=== PATIENT | female | born 1995 | race Caucasian/White ===

== ENCOUNTER → 2018-05-25 14:13 | Outpatient (CLI) | payer OTHER, SELFPAY ==
--- NOTE | 2018-05-25 14:15 | DI.US.S_ITS ---
PROCEDURE: US THYROID INDICATIONS: THYROMEGALY TECHNIQUE: Real-time scanning was performed of the thyroid gland, with image documentation. COMPARISON: None. FINDINGS: Right: The right thyroid measures 2.1 x 2.1 x 5.6 cm and shows diffuse heterogeneity without focal nodule. Left: The left thyroid lobe measures 1.4 x 2.0 x 5.3 cm also with diffuse heterogeneity and no focal nodule. Isthmus: 6.0 mm in thickness IMPRESSION: Related seen bilaterally, homogeneous, with only a mild degree of prominence of the overall dimensions of the thyroid lobes bilaterally. This likely reflects a manifestation of prior or ongoing thyroiditis. Dictated by: Raffaele Gonzáles M.D. on 05/25/2018 at 15:51 Approved by: Raffaele Gonzáles M.D. on 05/25/2018 at 15:53
== END ==
PROVIDERS: PCP Family Medicine; Visit Provider Family Medicine
DX: E01.0 Iodine-deficiency related diffuse (endemic) goiter (principal)
CPT/HCPCS: 76536

== ENCOUNTER → 2019-03-02 15:45 | Outpatient (CLI) | payer OTHER, SELFPAY ==
--- NOTE | 2019-03-02 15:47 | DI.RAD.S_ITS ---
PROCEDURE: XR SHOULDER LT MIN 2V INDICATIONS: left shoulder pain, possible AC subluxation TECHNIQUE: 3 views of the shoulder were acquired. COMPARISON: None. FINDINGS: Bones: No fractures or dislocations. The coracoclavicular and acromioclavicular intervals are maintained. No suspicious bony lesions. Visualized ribs appear intact. Soft tissues: No suspicious soft tissue calcifications. IMPRESSION: Left shoulder without acute osseous abnormalities or dislocation. Normal acromioclavicular and coracoclavicular intervals. If there is persistent clinical concern for acromioclavicular separation, consider dedicated imaging of the acromioclavicular joints with and without weights. Dictated by: Armando Garcia M.D. on 03/02/2019 at 18:19 Approved by: Armando Garcia M.D. on 03/02/2019 at 18:21
== END ==
PROVIDERS: PCP Family Medicine; Visit Provider Family Medicine
DX: M25.512 Pain in left shoulder (principal)
CPT/HCPCS: 73030

== ENCOUNTER → 2020-10-30 15:38 | Outpatient (CLI) | payer OTHER, SELFPAY ==
[2020-10-30 17:13] LABS: COVID19 -Nasal RAPID Negative (Negative)
== END ==
PROVIDERS: PCP Family Medicine; Visit Provider Physician Assistant
DX: Z20.828 Contact with and (suspected) exposure to other viral communicable diseases (principal)
CPT/HCPCS: 87635

== ENCOUNTER → 2021-01-29 09:27 | Outpatient (CLI) | payer OTHER, SELFPAY ==
[2021-01-29 11:33] LABS: COVID19 -Nasal RAPID Negative (Negative)
== END ==
PROVIDERS: PCP Family Medicine; Visit Provider Student in an Organized Health Care Education/Training Program
DX: Z20.822 Contact with and (suspected) exposure to COVID-19 (principal)
CPT/HCPCS: 87635

== ENCOUNTER 2022-08-29 08:43 | Day surgery (SDC) | payer OTHER, SELFPAY ==
[2022-08-29 09:33] LABS: COVID19 -Nasal RAPID Negative (Negative)
[2022-08-29 09:36] VITALS: BP 140/93; PULSE 100; RESP 20; TEMP 36.8; O2SAT 98; BMI 34.1
[2022-08-29] MEDS: LACTATED RINGERS 1,000 ML 42 ML IV (09:40)
--- NOTE | 2022-08-29 09:59 | PM.HP.1 ---
History of Present Illness History of Present Illness Date Patient Seen: 08/29/22 Time Patient Seen: 10:00 Chief complaint: D&C Narrative: Patient is a 27-year-old 1 para 0 with a missed at 7 weeks 5 days gestation. Patient presented for a new OB visit on August 28, 2022. On ultrasound baby was measuring 7 weeks 5 days, and patient should have been 9 weeks 2 days. No heart motion was visualized. Patient History Medical History (Updated 07/31/22 @ 21:39 by Toña Sharma) Acne (~2009) Ankle pain Anxiety Asthma Cardiac arrhythmia (~03/2016) Chronic back pain Depression (~2017) Headache (~2008) Heavy menstrual period (~2008) Major depressive disorder, recurrent, mild Migraines (~2008) Painful menstrual periods (~2015) Restless leg syndrome (~2020) Scoliosis (~2010) Shoulder pain Surgical History Anesthesia History of third molar tooth extraction (~06/2015) Family & Social History Family History (Updated 07/31/22 @ 21:42 by Toña Sharma) Grandfather Age: 84 Heart disease Essential hypertension High cholesterol Transient cerebral ischemia, unspecified type TGA (transient global amnesia) S/P CABG x 5 TIA (transient ischemic attack) Anxiety Grandmother Age: 83 Diabetes mellitus Heart disease Essential hypertension High cholesterol ST elevation myocardial infarction (STEMI), unspecified artery Mother Age: 59 Essential hypertension High cholesterol Meniere's disease, left Grandfather Diabetes mellitus Heart disease Essential hypertension High cholesterol Hx of CABG Transient cerebral ischemia, unspecified type BPH (benign prostatic hyperplasia) Colitis Gout Prostate cancer Grandmother Age: 84 Essential hypertension Migraine with aura High cholesterol Sister History of PCOS Immune deficiency disorder Social History: household members spouse lives independently Yes Tobacco & Substance use: Smoking Status Never smoker alcohol intake former Substance Use Type does not use Meds Home Medications and Allergies Home Medications Medication Instructions Recorded Confirmed Type albuterol sulfate 90 mcg/actuation 2 puff inhalation Q4HP PRN 05/29/19 08/28/22 Rx aerosol inhaler (Proventil HFA) shortness of breath or wheezing ##17 fluoxetine 20 mg tablet See Rx Instructions .Route 05/14/22 08/28/22 Rx .COMPLEX #90 tabs prenat.vits,sienna,[id number] 1 tab PO DAILY 07/30/22 08/28/22 History Allergies Allergy/AdvReac Type Severity Reaction Status Date / Time azithromycin [AZITHROMYCIN] Allergy Mild SHE GOT Verified 08/29/22 09:01 SICKER cefprozil [From CEFZIL] Allergy Mild RASH Verified 08/29/22 09:01 Exam Vital Signs (past 8 hours): - 08/29/22 09:36 Temperature 98.2 F Pulse Rate 100 H Respiratory Rate 20 Blood Pressure 140/93 H Pulse Oximetry 98 Oxygen Delivery Method Room Air Oxygen Delivery Method Room Air Narrative Exam Narrative: HEENT: No thyromegaly, no anterior cervical or supraclavicular lymphadenopathy. Lungs:Clear to auscultation bilaterally, no wheezes. Cardiovascular: Regular rate and rhythm, no murmurs, rubs, or gallops. Abdomen: No scars. No hepatosplenomegaly. No masses palpable. External genitalia: Normal Vagina: Normal Cervix: Normal Bimanual exam: 8 Week size uterus. Mobile. No adnexal masses or tenderness. Extremities: No edema Objective Labs Labs: Laboratory Results - last 24 hr 08/29/22 09:00 SARS-CoV-2 (PCR) Negative Assessment & Plan Assessment & Plan narrative: Assessment: 27-year-old 1 para 0 with a missed at 7 weeks gestation Plan: Suction D&C The risks, benefits, and alternatives to the procedure were explained to the patient. The risks including bleeding, infection, and uterine perforation. She understands these risks and agrees to proceed. A full par Q was held and consent form was signed. Consent form signed for cell free DNA on tissue COVID-19 COVID-19 status: Negative Result date/Date tested (Pos, Neg/Pending): 08/29/22 Time Spent With Patient Time with patient: less than 30 minutes Critical Care time: I spent a total of [] minutes of critical care time on this patient's care today; this time is exclusive of procedural time.
--- NOTE | 2022-08-29 10:13 | SUR.OPER ---
Lithotomy on padded OR bed, head on pillow, arms secured on padded arm boards at <90 degrees abduction. Legs secured in padded yellow fins stirrups.
--- NOTE | 2022-08-29 10:16 | PM.PREOP ---
Pre-operative Note COVID-19 COVID-19 status: Negative Result date/Date tested (Pos, Neg/Pending): 08/29/22 Criteria for continued procedure: Non-surgical alternatives not available or appropriate per current SOC Interval Note History & Physical reviewed/Exam performed by Physician: Yes Changes to H&P: No H&P completed within 30 days and has changed as indicated here:: 08/29/22
[2022-08-29 11:10] VITALS: BP 125/82; PULSE 82; RESP 13; TEMP 36.2; O2SAT 96
[2022-08-29 11:15] VITALS: BP 123/85; PULSE 78; RESP 21; O2SAT 98
[2022-08-29] MEDS: OXYCODONE/ACETAMINOPHEN 5/325 TABLET 1 TAB PO ×2 (11:18→11:26)
[2022-08-29] MEDS: ONDANSETRON 4 MG/2 ML INJ IV (11:19)
[2022-08-29 11:20] VITALS: BP 122/82; PULSE 84; RESP 16; O2SAT 99
[2022-08-29 11:29] VITALS: BP 121/76; PULSE 74; RESP 12; O2SAT 98
--- NOTE | 2022-08-29 14:43 | PM.GYNOP.1 ---
Operative Date/Time/Diagnoses Date of procedure: 08/29/22 Time of procedure: 11:15 Pre-op diagnosis: Missed at 7 weeks gestation Post-op diagnosis: same Procedure & Clinicians Procedure: Procedures Operation Date: 08/29/22 11:00 Actual Procedure Side Surgeon p Dilation and Curettage-SUCTION Julita Boggs MD Indications: Missed at 7 weeks gestation Surgeon: Julita Boggs Anesthesia Type: General (LMA) Operative Notes Findings: 8 week size anteverted uterus Large amount of products conception Closure Type: not applicable Specimen(s): products of conception Estimated blood loss (mL): 100 Blood products transfused: none Procedure in detail: After informed consent was obtained, the patient was taken to the operating room where she was placed in the dorsal supine position. After adequate LMA general anesthesia was achieved, she was placed in the dorsal lithotomy position, and prepped and draped in the usual sterile fashion. A time-out was performed. A bivalve speculum was placed into the vagina and the anterior lip of the cervix was grasped with a single-tooth tenaculum. The cervical os was sequentially dilated to the # 8 Hegar dilator. The # 7 plastic curved curette passed easily into the endometrial cavity. Several passes with suction revealed fluid and tissue. Several more passes revealed blood only. The curette was removed from the uterus. Sharp curettage was performed yielding minimal amount of tissue. Several more passes with suction revealed blood only. The instruments were removed from the uterus. The single-tooth tenaculum was removed from the anterior lip of the cervix. The bivalve speculum was removed from the vagina. Sponge, lap, and instrument counts were correct x2. The patient tolerated the procedure well, and was taken to PACU in stable condition. Complications: none Post-operative Condition: stable Plan for aftercare: Home after recovery
== END 2022-08-29 11:30 | disposition home or self-care (01) ==
PROVIDERS: PCP Family Medicine; Referring Provider Obstetrics & Gynecology; Visit Provider Obstetrics & Gynecology
PROC: (CPT 58120; principal; 2022-08-29 11:00)
DX: O02.1 Missed abortion (principal); Z3A.01 Less than 8 weeks gestation of pregnancy; F41.9 Anxiety disorder, unspecified; F32.A Depression, unspecified
CPT/HCPCS: 59820; 36415; 86850; 86900; 86901; 87635; J1100; J2250; J2405; J2704; J3010

== ENCOUNTER → 2022-12-02 16:34 | Outpatient (CLI) | payer OTHER, SELFPAY ==
[2022-12-02 18:09] LABS: HCG Quantitative /Beta subunit 484.1 mIU/mL
== END ==
PROVIDERS: PCP Family Medicine; Referring Provider Obstetrics & Gynecology; Visit Provider Obstetrics & Gynecology
DX: Z34.81 Encounter for supervision of other normal pregnancy, first trimester (principal)
CPT/HCPCS: 36415; 84702

== ENCOUNTER → 2022-12-04 17:17 | Outpatient (CLI) | payer OTHER, SELFPAY ==
[2022-12-04 18:16] LABS: HCG Quantitative /Beta subunit 777.2 mIU/mL
== END ==
PROVIDERS: PCP Family Medicine; Referring Provider Obstetrics & Gynecology; Visit Provider Obstetrics & Gynecology
DX: Z34.81 Encounter for supervision of other normal pregnancy, first trimester (principal)
CPT/HCPCS: 36415; 84702

== ENCOUNTER → 2023-01-11 13:38 | Outpatient (CLI) | payer OTHER, SELFPAY | PROVIDERS: PCP Family Medicine; Visit Provider Obstetrics & Gynecology | DX: Z34.81 Encounter for supervision of other normal pregnancy, first trimester (principal) | CPT/HCPCS: 87086 ==

== ENCOUNTER → 2023-01-11 13:59 | Outpatient (CLI) | payer OTHER, SELFPAY ==
[2023-01-11 15:31] LABS: Add Manual Diff / Slide Review NO; Basophils Absolute Auto 0 /uL (0-100); Basophils Percent Auto 0.1 % (0-2); Eosinophils Absolute Auto 100 /uL (0-450); Eosinophils Percent Auto 0.8 % (2-4); Hematocrit 39.3 % (36-46); Hemoglobin 13.6 g/dL (12.0-16.0); Lymphocytes Absolute Auto 2400 /uL (1100-4500); Lymphocytes Percent Auto 23.6 % (25-40); Mean Corpuscular HGB Conc 34.5 % (30-36); Mean Corpuscular Hemoglobin 29.3 PG (26-34); Mean Corpuscular Volume 84.9 fL (80-100); Monocytes Absolute Auto 600 /uL (0-900); Monocytes Percent Auto 6.1 % (3-14); Neutrophils Absolute Auto 7200 /uL (1500-7000); Neutrophils Percent Auto 69.4 % (50-75); Platelet Count 326 X10^3/uL (150-400); Red Blood Cell Count 4.63 X10^6/uL (4.0-5.2); Red Cell Distribution Width 13.6 % (11.6-14.8); White Blood Cell Count 10.3 X10^3/uL (4.5-11.0)
[2023-01-11 16:35] LABS: Hepatitis B Surface Antigen NEGATIVE s/c (NEGATIVE); Rubella Antibody IgG 99.3 IU/mL (>15)
[2023-01-11 16:48] LABS: HIV 1 & 2 Ab/Ag 4th Gen Combo NEGATIVE (NEGATIVE); Hep C Virus Ab w/Reflex Quant NEGATIVE s/c (NEGATIVE)
[2023-01-13 02:42] LABS: RPR Screen Non Reactive (Non Reactive)
[2023-01-14 12:53] LABS: Varicella IgG Antibody 415
== END ==
PROVIDERS: PCP Family Medicine; Referring Provider Obstetrics & Gynecology; Visit Provider Obstetrics & Gynecology
DX: Z34.81 Encounter for supervision of other normal pregnancy, first trimester (principal)
CPT/HCPCS: 36415; 80055; 86787; 86803; 86850; 86900; 86901; 87086; 87389

== ENCOUNTER → 2023-01-19 16:09 | Outpatient (CLI) | payer OTHER, SELFPAY | PROVIDERS: PCP Family Medicine; Referring Provider Obstetrics & Gynecology; Visit Provider Obstetrics & Gynecology | DX: Z34.81 Encounter for supervision of other normal pregnancy, first trimester (principal); Z3A.11 11 weeks gestation of pregnancy | CPT/HCPCS: 36415 ==

== ENCOUNTER → 2023-02-08 15:39 | Outpatient (CLI) | payer OTHER, SELFPAY ==
[2023-02-08 19:02] LABS: Urine N gonorrhoeae NOT DETECTED
[2023-02-08 19:08] LABS: Urine Chlamydia NOT DETECTED
== END ==
PROVIDERS: PCP Family Medicine; Visit Provider Obstetrics & Gynecology
DX: Z34.82 Encounter for supervision of other normal pregnancy, second trimester (principal); Z3A.14 14 weeks gestation of pregnancy
CPT/HCPCS: 87491; 87591

== ENCOUNTER → 2023-03-09 10:39 | Outpatient (CLI) | payer OTHER, SELFPAY ==
[2023-03-12 22:03] LABS: AFP, Serum 37.5 ng/mL (.); Estriol, Free 2.19 ng/mL (.); Inhibin A, Dimeric 211.38 pg/mL (.); Inhibin A, MoM 1.54 (.); Maternal Ethnicity Caucasian (.); Maternal Weight 185 lbs (.); Number of Fetuses No (.); OSBR Risk 1 IN 10000 (.); Results Report (.); Test Results *Screen Negative* (.); hCG, MoM 1.48 (.); hCG, Serum 37043 mIU/mL (.)
== END ==
PROVIDERS: PCP Family Medicine; Referring Provider Obstetrics & Gynecology; Visit Provider Obstetrics & Gynecology
DX: Z34.82 Encounter for supervision of other normal pregnancy, second trimester (principal); Z3A.18 18 weeks gestation of pregnancy
CPT/HCPCS: 36415; 82105; 82677; 84702; 86336

== ENCOUNTER → 2023-05-03 12:43 | Outpatient (CLI) | payer OTHER, SELFPAY ==
[2023-05-03 15:19] LABS: Hematocrit 33.9 % (36-46); Hemoglobin 11.7 g/dL (12.0-16.0)
[2023-05-03 15:42] LABS: GTT (PREG) 1 Hour PP 50gm Dose 108 mg/dL (76-139)
== END ==
PROVIDERS: PCP Family Medicine; Referring Provider Obstetrics & Gynecology; Visit Provider Obstetrics & Gynecology
DX: Z34.82 Encounter for supervision of other normal pregnancy, second trimester (principal); Z3A.26 26 weeks gestation of pregnancy
CPT/HCPCS: 36415; 82950; 85014; 85018

== ENCOUNTER → 2023-07-19 17:01 | Outpatient (CLI) | payer OTHER, SELFPAY ==
[2023-07-20 14:44] LABS: Strep Grp B PCR NEG for Grp B Strep
== END ==
PROVIDERS: PCP Family Medicine; Visit Provider Obstetrics & Gynecology
DX: Z34.03 Encounter for supervision of normal first pregnancy, third trimester (principal); Z3A.37 37 weeks gestation of pregnancy
CPT/HCPCS: 87653

== ENCOUNTER 2023-08-03 19:46 | Inpatient (IN) | payer OTHER, SELFPAY ==
[2023-08-03 21:40] VITALS: BP 119/82
[2023-08-03 21:51] LABS: Add Manual Diff / Slide Review NO; Basophils Absolute Auto 100 /uL (0-100); Basophils Percent Auto 0.5 % (0-2); Eosinophils Absolute Auto 0 /uL (0-450); Eosinophils Percent Auto 0.3 % (2-4); Hemoglobin 12.8 g/dL (12.0-16.0); Lymphocytes Absolute Auto 2400 /uL (1100-4500); Lymphocytes Percent Auto 19.9 % (25-40); Mean Corpuscular HGB Conc 33.8 % (30-36); Mean Corpuscular Hemoglobin 30.1 PG (26-34); Mean Corpuscular Volume 89.1 fL (80-100); Monocytes Absolute Auto 800 /uL (0-900); Monocytes Percent Auto 6.8 % (3-14); Neutrophils Absolute Auto 8700 /uL (1500-7000); Neutrophils Percent Auto 72.5 % (50-75); Platelet Count 281 X10^3/uL (150-400); Red Blood Cell Count 4.27 X10^6/uL (4.0-5.2); Red Cell Distribution Width 13.9 % (11.6-14.8)
--- NOTE | 2023-08-03 23:04 | P.HPOB_ITS ---
OB HPI Date/Time Date of admission: 08/03/23 Date Patient Seen: 08/03/23 Time Patient Seen: 22:00 History of Present Condition Chief complaint: observation of labor : 2 Para: 0 Estimated Date of Delivery: 08/08/23 Estimated Gestational Age (weeks): 39 Narrative: Venita Valle is a 28 year old female admitted for induction due to impending loss of insurance Indications Indication for induction OB: other (Impending loss of insurance) History of Present care: good care, initiated at week # (10), number of visits (10) and pounds weight gain (2) Dating criteria: LMP confirmed by 1st trimester US Ultrasounds: normal mid trimester US Obstetrical complications: none Medical complications: none Preadmission Labs Blood type: A (+) positive -: Antibody screen: negative, GBS status: negative, HBsAG: negative, HIV: negative and RPR/VDLR: negative -: Chlamydia screen: not detected and Gonorrhea screen: not detected -: Rubella: immune and Varicella: immune HCAB: reactive Quad screen: Normal Cell-free DNA: Insufficient fraction, increased risk for trisomy but still low fraction 1 hr GTT: 108 Evaluation Evaluation Baseline heart rate: 130 Variability: Moderate (11-25) monitor accelerations: Present Monitor Decelerations: Absent Contraction Frequency (minutes): 5 Uterine Contraction Intensity: Mild Category of Tracing: Reactive Status: Category l Dilation (cm): 1 Effacement (%): 75 station: -2 [facility] Medical History (Updated 06/01/23 @ 06:00 by Julita Boggs MD) Acne (~2009) Ankle pain Anxiety Asthma Cardiac arrhythmia (~03/2016) 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, delivered Chronic back pain Depression (~2017) Headache (~2008) Heavy menstrual period (~2008) Major depressive disorder, recurrent, mild Migraines (~2008) Painful menstrual periods (~2015) Restless leg syndrome (~2020) Scoliosis (~2010) Shoulder pain Surgical History Anesthesia History of third molar tooth extraction (~06/2015) Family History Grandfather Age: 85 Heart disease Essential hypertension High cholesterol Transient cerebral ischemia, unspecified type TGA (transient global amnesia) S/P CABG x 5 TIA (transient ischemic attack) Anxiety Grandmother Age: 84 Diabetes mellitus Heart disease Essential hypertension High cholesterol ST elevation myocardial infarction (STEMI), unspecified artery Mother Age: 60 Essential hypertension High cholesterol Meniere's disease, left Grandfather Diabetes mellitus Heart disease Essential hypertension High cholesterol Hx of CABG Transient cerebral ischemia, unspecified type BPH (benign prostatic hyperplasia) Colitis Gout Prostate cancer Grandmother Age: 85 Essential hypertension Migraine with aura High cholesterol Sister History of PCOS Immune deficiency disorder Social History marital status: number of children: 0 household members: spouse lives independently: Yes housing: apartment pets and animals: Yes (kitten, is managing litter box maintenance) education level: college (some college) 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) current occupational exposures/hazards: No special summer needs: No travel history: recent (domestic only) seatbelt use: always water heater temp set < 120 deg: Yes working smoke detector in home: Yes fire extinguisher in home: Yes carbon monox detector in home: Yes firearms in home: Yes do you feel safe at home: Yes Smoking Status: Never smoker second hand exposure: No alcohol intake: former substance use type: does not use during the past year weight has: remained stable well-balanced diet: daily or most days daily servings fruits/ve-4 caffeine: Yes Type(s) of exercise: none Meds Home Medications and Allergies Home Medications Medication Instructions Recorded Confirmed Type prenat.vits,sienna,[id number] 1 tab PO DAILY 07/30/22 07/29/23 History fluoxetine 20 mg tablet 20 mg PO DAILY #90 tabs 12/14/22 07/29/23 Rx ondansetron 4 mg disintegrating 4 mg PO Q6H #30 tabs 01/11/23 07/29/23 Rx tablet albuterol sulfate 90 mcg/actuation 2 puff inhalation Q4HP PRN 03/16/23 07/29/23 Rx aerosol inhaler (Proventil HFA) shortness of breath or wheezing ##17 Allergies Allergy/AdvReac Type Severity Reaction Status Date / Time azithromycin [AZITHROMYCIN] Allergy Mild SHE GOT Verified 07/29/23 13:21 SICKER cefprozil [From CEFZIL] Allergy Mild RASH Verified 07/29/23 13:21 Review of Systems Review of Systems Narrative: No headaches, scotomata, epigastric pain. Good movement. No leakage of fluid. Mild cramping. Small amount of vaginal bleeding. OB Exam Vital signs Blood Pressure: 119/82 Pulse Rate: 105 Temperature: 98.4 F Narrative Exam Narrative: HEENT exam within normal limits. Lungs are clear to auscultation percussion. No thyromegaly. Heart is regular rate and rhythm no S3-S4 murmurs. Abdomen is gravid, fetus is vertex, extremities without edema and nontender. Objective Labs 08/03/23 21:20 Labs: Laboratory Results - last 24 hr 08/03/23 08/03/23 21:20 21:20 WBC 12.0 H RBC 4.27 Hgb 12.8 Hct 38.0 MCV 89.1 MCH 30.1 MCHC 33.8 RDW 13.9 Plt Count 281 Neut % (Auto) 72.5 Lymph % (Auto) 19.9 L [place] % (Auto) 6.8 Eos % (Auto) 0.3 L Baso % (Auto) 0.5 Neut # (Auto) 8700 H Lymph # (Auto) 2400 [place] # (Auto) 800 Eos # (Auto) 0 Baso # (Auto) 100 Blood Type A Positive Antibody Screen Negative Assessment and Plan Assessment and Plan Assessment and Plan narrative: 28-year-old 39 week 2 day gestation admitted for induction for imminent loss of insurance. Patient is betina too much for cervical ripening. Patient declined Mcallister bulb. If patient not in active labor in a.m. will begin Pitocin. Time Spent with Patient Total time spent with greater than 50% in coordination of care (as documented) at patient's floor/unit and/or counseling patient:: less than 15 minutes
[2023-08-03 23:12] VITALS: BP 119/82; PULSE 105; TEMP 36.9
[2023-08-04] MEDS: LACTATED RINGERS 1,000 ML 100 ML IV ×3 (04:49→22:23)
[2023-08-04] MEDS: OXYTOCIN PREMIX 30 UNIT/500 ML PLAST..BAG IV (04:51)
--- NOTE | 2023-08-04 10:49 | PM.OBPNLAB ---
Date/Time Date Patient Seen: 08/04/23 Time Patient Seen: 08:00 Pain Control Pain control: tolerating well Comments: Temperature 36.6?, pulse 75, blood pressure 127/82 Pelvic Exam Amniotic membrane status: Intact Contractions Contractions on admission: regular Monitor mode: External Contraction frequency (min): 5 Contraction pattern: Irregular Contraction intensity: Mild Status status: Category l Heart Rate Baseline: 120 Monitor Accelerations: Present Monitor Decelerations: Absent Monitor Variability: Moderate Comments: Patient had contractions all night so was unable to have cervical ripening. Patient declined Mcallister bulb. Assessment and Plan Plan: begin patient augmentation
--- NOTE | 2023-08-04 10:50 | PM.OBPNLAB ---
Date/Time Date Patient Seen: 08/04/23 Time Patient Seen: 10:51 Pain Control Pain control: tolerating well Pelvic Exam Effacement (%): 75 Amniotic membrane status: Intact Contractions Contractions on admission: regular Monitor mode: External Pitocin rate (mU/min): 9 Contraction frequency (min): 3 Contraction duration (min): 1 Contraction pattern: Regular Contraction intensity: Moderate Status status: Category l Heart Rate Baseline: 130 Monitor Accelerations: Present Monitor Decelerations: Absent Monitor Variability: Moderate Assessment and Plan Assessment: induction ongoing Plan: continuous present management (Continue to increase Pitocin)
--- NOTE | 2023-08-04 14:21 | PM.AN.REGBLK ---
[facility] <Michael Berg MD - Last Filed: 08/04/23 14:24> Pre-procedure Procedure: Continuous Lumbar Epidural for L&D PMH/ROS narrative: , Mild asthma PSH/Anesthesia history narrative: None Exam narrative: WNL Labs: Hct 38.0 % (36-46) 08/03/23 21:20 Plt Count 281 X10^3/uL (150-400) 08/03/23 21:20 Medications: Current Medications Generic Name Dose Route Start Last Admin Trade Name Freq PRN Reason Stop Dose Admin Acetaminophen 650 mg 08/03/23 21:41 Acetaminophen 325 Mg Tablet PO Q4HR PRN Fever/Mild Pain (1-3) Calcium Carbonate 1,000 mg 08/03/23 21:41 Calcium Carbonate 500 Mg Tab PO Q2H PRN Dyspepsia Calcium Carbonate 1,000 mg 08/03/23 21:41 Calcium Carbonate 500 Mg Tab PO Q4HR PRN Dyspepsia Carboprost Tromethamine 250 mcg 08/03/23 21:41 Carboprost 250 Mcg/Ml Ampul IM Q90M PRN Bleeding Diphenhydramine HCl 25 mg 08/04/23 14:18 Diphenhydramine 50 Mg/Ml Vial IV Q10M PRN Pruritis Fentanyl 50 mcg 08/03/23 21:41 Fentanyl 100 Mcg/2 Ml Inj IV Q1H PRN Pain, Moderate (4-6) Lactated Ringer's 1,000 mls @ 100 mls/hr 08/03/23 21:45 08/04/23 12:33 Lactated Ringers IV 100 mls/hr CONT GWENDOLYN Administration Oxytocin/Lactated Ringer's 30 unit in 500 mls @ 2 mls/hr 08/03/23 21:45 08/04/23 04:51 Oxytocin Premix IV 2 milliunit/min TITRATE GWENDOLYN 2 mls/hr Administration Protocol 2 MILLIUNIT/MIN Tranexamic Acid 1,000 mg/ 100 mls @ 200 mls/hr 08/03/23 21:41 Sodium Chloride IV NOW PRN Bleeding Lactated Ringer's 1,000 mls @ 100 mls/hr 08/03/23 21:45 08/04/23 04:49 Lactated Ringers IV 100 mls/hr CONT GWENDOLYN Administration Oxytocin/Lactated Ringer's 30 unit in 500 mls @ 200 mls/hr 08/03/23 21:41 Oxytocin Premix IV CONT PRN Bleeding Protocol Oxytocin/Lactated Ringer's 30 unit in 500 mls @ 2 mls/hr 08/04/23 00:31 Oxytocin Premix IV TITRATE GWENDOLYN Protocol 2 MILLIUNIT/MIN FENT 2MCG/ML BUPIV 0.1% EPI 200 mcg in 100 mls @ 6 mls/hr 08/04/23 14:30 Fentanyl/Bupiv/Ns 2mcg/Ml - 0.1% EPIDURAL CONT GWENDOLYN FENT 2MCG/ML BUPIV 0.1% EPI 200 mcg in 100 mls @ 10 mls/hr 08/04/23 14:30 Fentanyl/Bupiv/Ns 2mcg/Ml - 0.1% EPIDURAL CONT GWENDOLYN Lidocaine HCl 20 ml 08/03/23 21:41 Lidocaine 1% 20 Ml INJ INTRA-OP PRN Post Delivery Methylergonovine Maleate 0.2 mg 08/03/23 21:41 Methylergonovine 0.2 Mg/Ml Vial IM NOW PRN Bleeding Methylergonovine Maleate 0.2 mg 08/03/23 21:41 Methylergonovine 0.2 Mg Tablet PO Q6HR PRN Heavy Bleeding Morphine Sulfate 2 mg 08/03/23 21:41 Morphine 2 Mg/Ml Inj IV Q4HR PRN Pain, Moderate (4-6) Nalbuphine HCl 2.5 mg 08/04/23 14:18 Nalbuphine 20 Mg/Ml Ampul IV Q10M PRN Pruritis Naloxone HCl 0.2 mg 08/03/23 21:41 Naloxone 0.4 Mg/Ml Vial IV Q2MIN PRN Opiate Reversal Ondansetron HCl 4 mg 08/03/23 21:41 Ondansetron 4 Mg/2 Ml Inj IV Q4HR PRN Nausea And Vomiting Oxytocin 10 unit 08/03/23 21:41 Oxytocin 10 Unit/Ml Vial IM NOW PRN Bleeding Zolpidem Tartrate 5 mg 08/03/23 21:41 Zolpidem 5 Mg Tablet PO BEDTIME PRN Sleep Allergies: Allergies Allergy/AdvReac Type Severity Reaction Status Date / Time azithromycin [AZITHROMYCIN] Allergy Mild SHE GOT Verified 07/29/23 13:21 SICKER cefprozil [From CEFZIL] Allergy Mild RASH Verified 07/29/23 13:21 Procedure Insertion date: 08/04/23 Insertion time: 14:00 Prep/Local: betadine x3 and 1% lidocaine Interspace: L4-5 Patient position: sitting Needle: 18 gauge Hustead Loss of resistance with: air LUIZ at (cm): 8 Catheter placed at SKIN (cm): 13 Catheter in SPACE (cm): 5 Insertion: No CSF, No Blood, No Paresthesia with insertion, No Paresthesia with injection and No Test dose reaction Initial Medications TEST DOSE time: 14:05 BOLUS DOSE time: 14:07 BOLUS DOSE (mL): 10 BOLUS DOSE med: 0.25% bupivacaine (And fentanyl 100mcg) Infusion INFUSION: 0.125% bupivacaine and with fentanyl 2 mcg/mL Post-procedure Anesthesia time START: 14:00 <Benji Guzman DO - Last Filed: 08/05/23 09:03> Infusion Subsequent interventions: 22:29 - 5mL 2% chloroprocaine, rate from 10 to 12. 00:10 - 2mL 0.5% bupiv, 50mcg fentanyl, 5mL clinician bolus of infusate Post-procedure Anesthesia time END: 03:19 Post-procedure Anesthesia Assessment: Yes CV function: HR/BP stable, Yes Resp function: RR/sat/airway adequate, Yes Post-op hydration adequate, Yes Pain control adequate, Yes Nausea & vomiting absent, Yes Temperature > 36 C, Yes Mental status appropriate and No Anesthesia complications
--- NOTE | 2023-08-04 16:51 | PM.OBPNLAB ---
Date/Time Date Patient Seen: 08/04/23 Time Patient Seen: 16:52 Pain Control Pain control: epidural Pelvic Exam Dilation (cm): 3 Effacement (%): 100 station: -2 Amniotic membrane status: Intact Comments: Ultrasound baby is looking transverse with spine on the left side of the patient. Contractions Contractions on admission: regular Monitor mode: External Pitocin rate (mU/min): 11 Contraction frequency (min): 4 Contraction duration (min): 1 Contraction pattern: Regular Contraction intensity: Strong/Firm Status status: Category l Heart Rate Baseline: 130 Monitor Accelerations: Present Monitor Decelerations: Absent Monitor Variability: Moderate Assessment and Plan Assessment: induction ongoing Plan: continuous present management
[2023-08-04] MEDS: FENT 2MCG/ML BUPIV 0.1% EPI 200 MCG/100 ML PLAST..BAG 6 MCG EPIDURAL ×2 (21:18→21:20)
--- NOTE | 2023-08-05 01:40 | PM.OBPNLAB ---
Date/Time Date Patient Seen: 08/05/23 Time Patient Seen: 01:40 Pain Control Pain control: epidural Pelvic Exam Dilation (cm): 10 Effacement (%): 100 station: +2 Amniotic membrane status: Ruptured (Thin meconium) Contractions Contractions on admission: regular Monitor mode: External Pitocin rate (mU/min): 0 Contraction frequency (min): 3 Contraction duration (min): 1 Contraction pattern: Regular Contraction intensity: Strong/Firm Status status: Category ll Heart Rate Baseline: 150 Monitor Accelerations: Present Monitor Decelerations: Variable Monitor Variability: Moderate Assessment and Plan Assessment: active labor Comments: Good progress with pushing
--- NOTE | 2023-08-05 03:42 | P.PCNOB_ITS ---
Events: Labor Induction (Elective) Labor & Delivery Delivery date: 08/05/23 Intrapartal Events: Prolonged 2nd Stage > 2.5 hours and Febrile Induction method: per pitocin protocol Delivery monitor: external FHT and external uterine Route of delivery: vacuum extraction Indication for instrumentation: nonreassuring FHR tracing L&D Laceration Description: Perineal - 2nd Degree Delivery repair: chromic (3-0) Estimated blood loss (mL): 800 Anesthesia Type: Epidural Narrative: Patient arrived on Labor and delivery for elective induction. On arrival 08/03 she was betina mildly every 5 minutes. She continued to contract so cer vical ripening was unable to be performed. She was started on Pitocin IV. She received an epidural catheter for pain control. Throughout labor heart tones category 1 to category 2. The patient did have a fever the last hour of pushing. After close to 3 hours of pushing the patient was having minimal progress in labor and repetitive late decelerations with slow return to baseline so decision was made to assist in vaginal delivery. A vacuum was placed on the head and with 1 contraction the head was delivered. The was placed on maternal abdomen. There was a cord around the baby's neck. I was also compound presentation of the baby's hand with the baby's face. Delayed cord clamping by greater than 1 minute was performed. The cord was clamped, cut, and cord bloods obtained. The placenta delivered spontaneously, intact, with 3 vessels. Patient was found to have no cervical or vaginal tears. A second-degree perineal tear was repaired with 3-0 chromic suture in the usual 2 layer fashion. Estimated blood loss 800 cc from the vaginal tear rather than from uterine atony. Both infant and mother doing well. Baby 1: Infant gender: Female Presentation: vertex Position: Right Occiput Anterior Placenta delivery description: Spontaneous Cord Vessel Description: 3 Vessels score (1 min): 9 score (5 min): 9 weight: 6 lb 1 oz Plan for aftercare: Routine care
[2023-08-05 04:06] VITALS: TEMP 38.5
[2023-08-05] MEDS: ACETAMINOPHEN 325 MG TABLET 650 MG PO ×3 (04:06→21:47)
[2023-08-05] MEDS: DERMOPLAST SPRAY 20% 60 ML 1 SPRAY TOP (08:03)
[2023-08-05] MEDS: IBUPROFEN 600 MG TABLET PO ×3 (08:44→21:47)
[2023-08-05] MEDS: PRENATAL VIT,CALC/IRON/FOLIC 1 TABLET 1 TAB PO (08:44)
[2023-08-05] MEDS: DOCUSATE 100 MG CAPSULE PO (08:44)
[2023-08-05] MEDS: FERROUS SULFATE 325 MG TABLET PO (08:44)
[2023-08-05] MEDS: FLUoxetine 20 MG CAPSULE PO (08:59)
--- NOTE | 2023-08-05 11:24 | P.HPNB_ITS ---
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 Anesthesia History of third molar tooth extraction (~06/2015) Family History? Grandfather? Age: 85 Heart disease Essential hypertension High cholesterol Transient cerebral ischemia, unspecified type TGA (transient global amnesia) S/P CABG x 5 TIA (transient ischemic attack) AnxietyGrandmother? Age: 84 Diabetes mellitus Heart disease Essential hypertension High cholesterol ST elevation myocardial infarction (STEMI), unspecified arteryMother? Age: 60 Essential hypertension High cholesterol Meniere's disease, leftGrandfather?? Diabetes mellitus Heart disease Essential hypertension High cholesterol Hx of CABG Transient cerebral ischemia, unspecified type BPH (benign prostatic hyperplasia) Colitis Gout Prostate cancerGrandmother? Age: 85 Essential hypertension Migraine with aura High cholesterolSister History of PCOS Immune deficiency disorder Social History marital status:? number of children:? 0 household members:? spouse lives independently:? Yes housing:? apartment pets and animals:? Yes (kitten, is managing litter box maintenance) education level:? 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 No special summer needs:? No travel history:? recent (domestic only) seatbelt use:? always water heater temp set < 120 deg:? Yes working smoke detector in home:? Yes fire extinguisher in home:? Yes carbon monox detector in home:? Yes firearms in home:? Yes do you feel safe at home:? Yes Smoking Status:? Never smoker second hand exposure:? No alcohol intake:? former substance use type:? does not use during the past year weight has:? remained stable well-balanced diet:? daily or most days daily servings fruits/veg:? 2-4 caffeine:? Yes Type(s) of exercise:? none Meds Home Medications and Allergies Home Medications ?Medication ?Instructions ?Recorded ?Confirmed ?Type prenat.vits,sienna,ram-pqjb-[id number] 1 tab PO DAILY 07/30/22 07/29/23 History fluoxetine 20 mg tablet 20 mg PO DAILY #90 tabs 12/14/22 07/29/23 Rx ondansetron 4 mg disintegrating 4 mg PO Q6H #30 tabs 01/11/23 07/29/23 Rx tablet ? albuterol sulfate 90 mcg/actuation 2 puff inhalation Q4HP PRN 03/16/23 07/29/23 Rx aerosol inhaler (Proventil HFA) shortness of breath or wheezing ? ##17 ? ? ? Allergies Allergy/AdvReac Type Severity Reaction Status Date / Time azithromycin [AZITHROMYCIN] Allergy Mild SHE GOT Verified 07/29/23 13:21 ? ? ? SICKER ? ? cefprozil [From CEFZIL] Allergy Mild RASH Verified 07/29/23 13:21 Review of Systems Review of Systems Narrative: No headaches, scotomata, epigastric pain.? Good movement.? No leakage of fluid.? Mild cramping.? Small amount of vaginal bleeding. OB Exam Vital signs Blood Pressure: 119/82 Pulse Rate: 105 Temperature: 98.4 F Narrative Exam Narrative: HEENT exam within normal limits.? Lungs are clear to auscultation percussion.? No thyromegaly.? Heart is regular rate and rhythm no S3-S4 murmurs.? Abdomen is gravid, fetus is vertex, extremities without edema and nontender. Objective Labs 08/03/23 21:20? Labs: Laboratory Results - last 24 hr ? 08/03/23 08/03/23 ? 21:20 21:20 WBC ? ?12.0 H RBC ? ?4.27 Hgb ? ?12.8 Hct ? ?38.0 MCV ? ?89.1 MCH ? ?30.1 MCHC ? ?33.8 RDW ? ?13.9 Plt Count ? ?281 Neut % (Auto) ? ?72.5 Lymph % (Auto) ? ?19.9 L [place] % (Auto) ? ?6.8 Eos % (Auto) ? ?0.3 L Baso % (Auto) ? ?0.5 Neut # (Auto) ? ?8700 H C Lymph # (Auto) ? ?2400 [place] # (Auto) ? ?800 Eos # (Auto) ? ?0 Baso # (Auto) ? ?100 Blood Type ?A Positive ? Antibody Screen ?Negative ? Assessment and Plan Assessment and Plan Assessment and Plan narrative: 28-year-old 39 week 2 day gestation admitted for induction for imminent loss of insurance.? Patient is betina too much for cervical ripening.? Hiral ent declined Mcallister bulb.? If patient not in active labor in a.m. will begin Pitocin. Exam - Pediatric Vital Signs Vital Signs: Vital Signs BP 119/82 08/03/23 21:40 Objective Labs 08/03/23 21:20 Sarnat Scoring Scale Citation Ashley HB, Smooth L, Carrie C, Isidro LM, Anna C, Garcia K. Sarnat grading scale for encephalopathy after 45 years: an update proposal. Pediatr Neurol. 2020;113:75?9.
--- NOTE | 2023-08-05 12:14 | PM.OBPN.1 ---
Subjective - OB Subjective Patient comments: pain well controlled [place] baby status: doing well feeding status: exclusively breast feeding Narrative: 8 hours post vaginal delivery with repair of second-degree tear. Patient with 800 cc blood loss at the time of surgery. Patient was feeling slightly lightheaded and dizzy with increased pulse but is feeling better at this time. Patient was unable to void and was straight cath x1 then had a Mcallister catheter placed 4 hours later due to swelling. Date Patient Seen: 08/05/23 Time Patient Seen: 12:15 Exam Vital Signs (past 8 hours): Blood pressure 107/69, pulse of 109, temperature 36.0? Narrative Exam Narrative: Abdomen is soft, nontender. Uterus is firm, at U, nontender. Repair is intact. Mild lochia. Extremities without edema and nontender. Objective Labs 08/03/23 21:20 Assessment & Plan Plan day: 0 plan OB: routine care Comments: Will check CBC now rather than waiting till tomorrow. Remove Mcallister tomorrow after swelling has decreased. Time Spent With Patient Time: Total time spent is greater than 50% in coordination of care (as documented) at patient's floor/unit and/or counseling patient: Time with patient: less than 15 minutes
[2023-08-05 14:13] LABS: Add Manual Diff / Slide Review NO; Basophils Absolute Auto 0 /uL (0-100); Basophils Percent Auto 0.2 % (0-2); Eosinophils Absolute Auto 0 /uL (0-450); Eosinophils Percent Auto 0.2 % (2-4); Hematocrit 26.3 % (36-46); Hemoglobin 8.9 g/dL (12.0-16.0); Lymphocytes Absolute Auto 1900 /uL (1100-4500); Lymphocytes Percent Auto 11.1 % (25-40); Mean Corpuscular HGB Conc 33.8 % (30-36); Mean Corpuscular Hemoglobin 29.8 PG (26-34); Mean Corpuscular Volume 87.9 fL (80-100); Monocytes Absolute Auto 1200 /uL (0-900); Neutrophils Absolute Auto 13800 /uL (1500-7000); Neutrophils Percent Auto 81.5 % (50-75); Platelet Count 228 X10^3/uL (150-400); Red Blood Cell Count 2.99 X10^6/uL (4.0-5.2); Red Cell Distribution Width 14.1 % (11.6-14.8); White Blood Cell Count 16.9 X10^3/uL (4.5-11.0)
[2023-08-06] MEDS: OXYCODONE IR 5 MG TABLET PO ×3 (02:33→17:41)
[2023-08-06] MEDS: IBUPROFEN 600 MG TABLET PO ×3 (04:44→19:46)
[2023-08-06] MEDS: ACETAMINOPHEN 325 MG TABLET 650 MG PO ×3 (04:45→19:46)
[2023-08-06 06:15] LABS: Add Manual Diff / Slide Review NO; Basophils Absolute Auto 0 /uL (0-100); Basophils Percent Auto 0.2 % (0-2); Eosinophils Absolute Auto 100 /uL (0-450); Eosinophils Percent Auto 0.5 % (2-4); Hematocrit 21.8 % (36-46); Hemoglobin 7.3 g/dL (12.0-16.0); Lymphocytes Absolute Auto 3000 /uL (1100-4500); Lymphocytes Percent Auto 21.8 % (25-40); Mean Corpuscular HGB Conc 33.4 % (30-36); Mean Corpuscular Hemoglobin 29.6 PG (26-34); Mean Corpuscular Volume 88.5 fL (80-100); Monocytes Absolute Auto 900 /uL (0-900); Monocytes Percent Auto 6.9 % (3-14); Neutrophils Absolute Auto 9700 /uL (1500-7000); Neutrophils Percent Auto 70.6 % (50-75); Platelet Count 188 X10^3/uL (150-400); Red Blood Cell Count 2.46 X10^6/uL (4.0-5.2); Red Cell Distribution Width 14.3 % (11.6-14.8); White Blood Cell Count 13.7 X10^3/uL (4.5-11.0)
[2023-08-06] MEDS: FLUoxetine 20 MG CAPSULE PO (10:07)
[2023-08-06] MEDS: FERROUS SULFATE 325 MG TABLET PO (10:07)
[2023-08-06] MEDS: PRENATAL VIT,CALC/IRON/FOLIC 1 TABLET 1 TAB PO (10:07)
[2023-08-06] MEDS: DOCUSATE 100 MG CAPSULE PO (10:07)
--- NOTE | 2023-08-06 11:25 | P.PNOB_ITS ---
Subjective - OB Subjective Patient comments: no complaints (Tolerable discomfort with ambulation) baby status: doing well (Being monitored for possible cardiac problems) feeding status: exclusively breast feeding Date Patient Seen: 08/06/23 Time Patient Seen: 09:00 Interval history: Patient is day 1 status post vaginal delivery with repair of second-degree tear with acute blood loss anemia. Patient still has her Mcallister catheter in that was replaced due to inability urinate from swelling . Patient denies headaches. Exam Vital Signs (past 8 hours): Blood pressure 115/64, pulse of 81, temperature 98.6? Narrative Exam Narrative: Abdomen is soft, nontender. Uterus is firm, at U, nontender. Repair is intact. Mild lochia. Extremities without edema and nontender. Objective Labs 08/06/23 06:00 Labs: Laboratory Results - last 24 hr 08/05/23 08/06/23 14:08 06:00 WBC 16.9 H 13.7 H RBC 2.99 L 2.46 L Hgb 8.9 L 7.3 L Hct 26.3 L 21.8 L MCV 87.9 88.5 MCH 29.8 29.6 MCHC 33.8 33.4 RDW 14.1 14.3 Plt Count 228 188 Neut % (Auto) 81.5 H 70.6 Lymph % (Auto) 11.1 L 21.8 L [place] % (Auto) 7.0 6.9 Eos % (Auto) 0.2 L 0.5 L Baso % (Auto) 0.2 0.2 Neut # (Auto) 32311 H 9700 H Lymph # (Auto) 1900 3000 [place] # (Auto) 1200 H 900 Eos # (Auto) 0 100 Baso # (Auto) 0 0 Assessment & Plan Assessment and Plan (1) Vaginal delivery: Status: Acute (2) Acute blood loss anemia: Status: Acute Plan day: 1 plan OB: routine care Comments: Remove Mcallister. IV iron therapy. Time Spent With Patient Time: Total time spent is greater than 50% in coordination of care (as documented) at patient's floor/unit and/or counseling patient: Time with patient: less than 15 minutes
[2023-08-06] MEDS: IRON SUCROSE 200 MG in SODIUM CHLORIDE 0.9% 100 ML 220 MG IV (11:38)
[2023-08-06 12:48] LABS: Hematocrit 23.5 % (36-46)
[2023-08-06 12:49] LABS: Hemoglobin 8.2 g/dL (12.0-16.0)
[2023-08-06 13:00] LABS: Carbon Dioxide 24 mmol/L (22-32); Chloride 108 mmol/L (98-107); HEMOLYSIS < 15 (0-50); Potassium 3.7 mmol/L (3.4-5.1); Sodium 136 mmol/L (137-145)
[2023-08-06] MEDS: LANOLIN OINT 7 GM 1 APPLIC TOP (17:40)
--- NOTE | 2023-08-06 17:47 | P.DS_ITS ---
Discharge Providers Provider Date of admission: 08/03/23 19:46 Discharge Date: 08/06/23 Primary care physician: Janet Gillespie MD Consults: 08/03/23 21:41 Consult to Anesthesiology Urgent Comment: Consulting Provider: Anesthesiologist Reason for consultation: Epidural Has provider been notified: No 08/06/23 03:39 Consult to Implementation Project Coordinator Routine Comment: Discharge provider: Jolie Duckworth MD Summary Hospital Course Date Patient Seen: 08/06/23 Time Patient Seen: 17:47 Diagnoses: 39 week gestation with elective induction status post vacuum assisted vaginal delivery with repair of second-degree tear Hospital Course: Patient arrived on Labor and delivery for induction. She was betina too much for ripening but eventually started on Pitocin. She received an epidural catheter for pain control. She had a prolonged 2nd stage with deep variables with slow return to baseline at the end of 2nd stage with a maternal temperature so decision was made for vacuum assisted vaginal delivery. Patient had significant blood loss from her second-degree tear. Patient had a Mcallister catheter replaced for inability to urinate due to swelling. Due to patient's anemia the patient was started on IV iron therapy and she had a transfusion like reaction and so the infusion was stopped. Patient has been trying to breastfeed but unsuccessful so baby is being bottle fed. Patient is passing gas. Patient was able to urinate after her Mcallister catheter was removed. transported and patient discharged to be allowed to go with baby. Peripartum Data Infant Delivery Method: Assisted Delivery (Vacuum assisted) Laceration Description: Perineal - 2nd Degree Procedures: Pitocin induction, epidural catheter, vacuum assisted vaginal delivery, repair of second-degree tear complications: other (Transfusion like reaction to IV iron therapy) 1: Gender: Female Disposition of : NICU (Transfer in progress for heart rate) Discharge Diagnosis (1) Vaginal delivery: Status: Acute Problem Details: Vacuum assisted (2) Acute blood loss anemia: Status: Acute Status at Discharge Cognitive/behavioral status at discharge: oriented Functional status at discharge: independent ambulation Overall status at discharge: patient is progressing back to baseline Time Spent with Patient Time attestation: Total time spent providing and/or coordinating discharge services: Time spent: Less than 30 minutes Objective Labs 08/06/23 12:34 08/06/23 12:34 Labs: Laboratory Results - last 24 hr 08/06/23 08/06/23 08/06/23 06:00 12:34 12:34 WBC 13.7 H RBC 2.46 L Hgb 7.3 L 8.2 L Hct 21.8 L MCV 88.5 MCH 29.6 MCHC 33.4 RDW 14.3 Plt Count 188 Neut % (Auto) 70.6 Lymph % (Auto) 21.8 L [place] % (Auto) 6.9 Eos % (Auto) 0.5 L Baso % (Auto) 0.2 Neut # (Auto) 9700 H Lymph # (Auto) 3000 [place] # (Auto) 900 Eos # (Auto) 100 Baso # (Auto) 0 Sodium 136 L Potassium 3.7 Chloride 108 H Carbon Dioxide 24 08/06/23 12:34 WBC RBC Hgb Hct 23.5 L MCV MCH MCHC RDW Plt Count Neut % (Auto) Lymph % (Auto) [place] % (Auto) Eos % (Auto) Baso % (Auto) Neut # (Auto) Lymph # (Auto) [place] # (Auto) Eos # (Auto) Baso # (Auto) Sodium Potassium Chloride Carbon Dioxide Exam Narrative Exam Narrative: Abdomen is soft, nontender. Uterus is firm, at U, nontender. Mild lochia. Repair intact. Extremities with trace edema and nontender. Discharge Plan Discharge Plan Patient Disposition: Home Discharge orders & Medications Prescriptions: New ferrous sulfate 325 mg (65 mg iron) Tablet 325 mg PO DAILY Qty: 30 0RF Continued fluoxetine 20 mg tablet 20 mg PO DAILY Qty: 90 3RF albuterol sulfate [Proventil HFA] 90 mcg/actuation HFA aerosol inhaler 2 puff inhalation Q4HP PRN (Reason: shortness of breath or wheezing) Qty: 17 4RF oxycodone 5 mg tablet 5 mg PO Q4H PRN (Reason: pain) Qty: 14 0RF prenat.vits,sienna,wpm-sunl-hgvvd Tablet 1 tab PO DAILY Follow up/Referrals: Julita Boggs MD [Physician] - 6 Weeks Janet Gillespie MD [Primary Care Provider] - Diet/Activity/Treatments Diet: Regular Activity: Nothing in vagina for 6 weeks Skin/Wound/Dressing Care Report to your healthcare provider any signs of infection, such as:: chills, fever and increased pain Visit Report/Discharge Packet Stand Alone Forms: Discharge: Care, Patient Portal/API Discharge Data Primary Care Provider: Janet Gillespie Discharges patient from system. Discharge Date/Time: 08/06/23 20:38
[2023-08-06 19:07] VITALS: BP 110/62; PULSE 87; RESP 16; TEMP 37.3
== END 2023-08-06 20:38 | disposition home or self-care (01) | DRG 806 ==
PROVIDERS: Admitting Provider Specialist; PCP Family Medicine; Referring Provider Specialist; Visit Provider Specialist
DX: O76 Abnormality in fetal heart rate and rhythm complicating labor and delivery (principal); D62 Acute posthemorrhagic anemia; Z37.0 Single live birth; O90.81 Anemia of the puerperium; O70.1 Second degree perineal laceration during delivery; Z3A.39 39 weeks gestation of pregnancy; O32.6XX0 Maternal care for compound presentation, not applicable or unspecified
CPT/HCPCS: 36415; 59050; 59400; 59409; 80051; 85014; 85018; 85025; 86850; 86900; 86901; G0379; J1756; J2590

== ENCOUNTER → 2023-09-10 09:52 | Outpatient (CLI) | payer SELFPAY ==
[2023-09-11 15:10] LABS: Candida species Negative (Negative); Gardnerella vaginalis Negative (Negative); Trichomoas vaginalis Negative (Negative)
== END ==
PROVIDERS: PCP Family Medicine; Visit Provider Obstetrics & Gynecology
DX: N89.8 Other specified noninflammatory disorders of vagina (principal)
CPT/HCPCS: 87480; 87510; 87660

== ENCOUNTER → 2024-06-08 12:58 | Outpatient (CLI) | payer BC, SELFPAY ==
[2024-06-08 13:50] LABS: Add Manual Diff / Slide Review NO; Basophils Absolute Auto 0 /uL (0-100); Basophils Percent Auto 0.3 % (0-2); Eosinophils Absolute Auto 100 /uL (0-450); Eosinophils Percent Auto 1.6 % (2-4); Hematocrit 40.3 % (36-46); Hemoglobin 13.6 g/dL (12.0-16.0); Lymphocytes Absolute Auto 3000 /uL (1100-4500); Lymphocytes Percent Auto 35.9 % (25-40); Mean Corpuscular HGB Conc 33.9 % (30-36); Mean Corpuscular Hemoglobin 29.2 PG (26-34); Mean Corpuscular Volume 86.3 fL (80-100); Monocytes Absolute Auto 600 /uL (0-900); Monocytes Percent Auto 7.2 % (3-14); Neutrophils Absolute Auto 4600 /uL (1500-7000); Platelet Count 296 X10^3/uL (150-400); Red Blood Cell Count 4.67 X10^6/uL (4.0-5.2); Red Cell Distribution Width 13.9 % (11.6-14.8); White Blood Cell Count 8.3 X10^3/uL (4.5-11.0)
[2024-06-08 14:11] LABS: Alanine Aminotransferase 19 IU/L (<35); Albumin 4.5 g/dL (3.5-5.0); Albumin Globulin Ratio 1.5 (1.0-2.8); Alkaline Phosphatase 62 U/L (38-126); Aspartate Aminotransferase 23 IU/L (14-36); BUN Creatinine Ratio 16.2 (6-22); Bilirubin Total 0.6 mg/dL (0.2-1.3); Blood Urea Nitrogen 12 mg/dL (7-17); Calcium 9.3 mg/dL (8.4-10.2); Carbon Dioxide 17 mmol/L (22-32); Chloride 110 mmol/L (98-107); Estimated Glomerular Filt Rate > 60 mL/min (>60); Globulin 3.1 g/dL (1.7-4.1); Glucose 109 mg/dL (70-100); HEMOLYSIS < 15 (0-50); Potassium 3.7 mmol/L (3.4-5.1); Sodium 138 mmol/L (137-145); Total Protein 7.6 g/dL (6.3-8.2)
[2024-06-08 14:32] LABS: Free T3, Triiodothyronine Free 3.84 pg/mL (2.77-5.27)
[2024-06-08 14:46] LABS: Thyroid Stimulating Hormone 1.59 uIU/mL (0.47-4.68)
== END ==
PROVIDERS: PCP Family Medicine; Referring Provider Family Medicine; Visit Provider Family Medicine
DX: F32.A Depression, unspecified (principal); R53.83 Other fatigue
CPT/HCPCS: 36415; 80053; 84439; 84443; 84481; 85025

== ENCOUNTER → 2024-10-31 09:42 | Outpatient (CLI) | payer BC, SELFPAY ==
[2024-10-31 11:08] LABS: HCG Quantitative /Beta subunit 357.94 mIU/mL
== END ==
PROVIDERS: PCP Family Medicine; Referring Provider Obstetrics & Gynecology; Visit Provider Obstetrics & Gynecology
DX: Z34.90 Encounter for supervision of normal pregnancy, unspecified, unspecified trimester (principal)
CPT/HCPCS: 36415; 84702

== ENCOUNTER → 2024-11-02 10:32 | Outpatient (CLI) | payer BC, SELFPAY ==
[2024-11-02 13:08] LABS: HCG Quantitative /Beta subunit 783.83 mIU/mL
== END ==
LOC: LAB 10:41
PROVIDERS: PCP Family Medicine; Referring Provider Obstetrics & Gynecology; Visit Provider Obstetrics & Gynecology
DX: Z34.90 Encounter for supervision of normal pregnancy, unspecified, unspecified trimester (principal)
CPT/HCPCS: 36415; 84702

== ENCOUNTER → 2024-12-21 13:57 | Outpatient (CLI) | payer OTHER, SELFPAY ==
[2024-12-21 20:28] LABS: Urine N gonorrhoeae NOT DETECTED
[2024-12-21 21:01] LABS: Urine Chlamydia NOT DETECTED
== END ==
PROVIDERS: PCP Family Medicine; Visit Provider Obstetrics & Gynecology
DX: Z11.3 Encounter for screening for infections with a predominantly sexual mode of transmission (principal); Z3A.11 11 weeks gestation of pregnancy
CPT/HCPCS: 87491; 87591

== ENCOUNTER → 2024-12-21 16:36 | Outpatient (CLI) | payer OTHER, SELFPAY ==
[2024-12-21 17:21] LABS: Add Manual Diff / Slide Review NO; Basophils Absolute Auto 0 /uL (0-100); Basophils Percent Auto 0.2 % (0-2); Eosinophils Absolute Auto 100 /uL (0-450); Eosinophils Percent Auto 0.5 % (2-4); Hematocrit 39.3 % (36-46); Hemoglobin 13.7 g/dL (12.0-16.0); Lymphocytes Absolute Auto 2400 /uL (1100-4500); Lymphocytes Percent Auto 22.1 % (25-40); Mean Corpuscular HGB Conc 34.8 % (30-36); Mean Corpuscular Hemoglobin 31.3 PG (26-34); Mean Corpuscular Volume 89.7 fL (80-100); Monocytes Absolute Auto 600 /uL (0-900); Monocytes Percent Auto 5.2 % (3-14); Neutrophils Absolute Auto 7800 /uL (1500-7000); Platelet Count 269 X10^3/uL (150-400); Red Blood Cell Count 4.37 X10^6/uL (4.0-5.2); White Blood Cell Count 10.8 X10^3/uL (4.5-11.0)
[2024-12-21 18:26] LABS: HIV 1 & 2 Ab/Ag 4th Gen Combo NEGATIVE (NEGATIVE); Hep C Virus Ab w/Reflex Quant NEGATIVE s/c (NEGATIVE); Hepatitis B Surface Antigen NEGATIVE s/c (NEGATIVE); Rubella Antibody IgG 93.3 IU/mL (>15)
== END ==
PROVIDERS: PCP Family Medicine; Referring Provider Specialist; Visit Provider Specialist
DX: Z34.80 Encounter for supervision of other normal pregnancy, unspecified trimester (principal)
CPT/HCPCS: 36415; 80055; 86787; 86803; 86850; 86900; 86901; 87086; 87389

== ENCOUNTER → 2025-02-23 07:43 | Outpatient (CLI) | payer OTHER, SELFPAY ==
--- NOTE | 2025-02-23 07:44 | DI.US.S_ITS ---
PROCEDURE: US OB >= 14 WEEKS FETUS INDICATIONS: 20 week anatomy scan OUTSIDE/PRIOR DATING DATA: Last menstrual period (LMP): 10/04/2025. LMP-based estimated date of delivery (ELIUD): 07/11/2025. First dating scan (date and location): 11/20/2024. Estimated date of delivery (ELIUD) from first dating scan: 07/11/2025. The calculations are made using the working and ultrasound ELIUD of 07/11/2025. TECHNIQUE: Real-time scanning was performed of the fetus, with image documentation and biometric measurements. Endovaginal scanning: Not performed COMPARISON: [facility], US, US OB >= 14 WEEKS FETUS, 01/25/2025, 10:28. FINDINGS: General: A single living intrauterine gestation is present. Presentation: Vertex. Placenta: Placental position is posterior, without previa. Amniotic fluid index: 14.1 cm, normal range is 5-24 cm. Single deepest vertical pocket is 4.2 cm. heart rate: 4.8 beats per minute. Maternal cervical canal: 4.8 cm long. Normal lower limit is 2.5 cm. biometrics: Biparietal diameter: 5.2 cm, 21 weeks 5 days Head circumference: 18.6 cm, 20 weeks 6 days Abdominal circumference: 17.0 cm, 22 weeks 0 days Femur length: 3.3 cm, 20 weeks 3 days Clinically estimated gestational age: 20 weeks 2 days Composite gestational age from present scan: 21 weeks 2 days Estimated weight and percentile: 411 g, 92nd percentile Anatomic survey: Neuro: Ventricles are non-dilated at less than 10 mm. Cisterna magna is normal at 3-11 mm. Cerebellum is normal in size and morphology. Nuchal skin fold: Normal at less than 6 mm between 14-21 weeks gestational age. Face: Nose and lips, facial profile are normal. Spine: No evidence for spina bifida. Heart: 4-chambered heart is present, with normal ventricular outflow tracts. Diaphragm: Diaphragm is intact. Stomach: Left-sided stomach is present. Kidneys: No hydronephrosis. Normal is less than 5 mm in 2nd trimester, less than 7 mm in 3rd trimester. Cord: 3-vessel cord has orthotopic insertion. Bladder: Normal in size. Extremities: All 4 extremities identified. IMPRESSION: 1. Living 2nd trimester intrauterine with no sonographic evidence of complications. Ultrasound age is 7 days greater than clinical age. 2. Normal 2nd trimester anatomy study. We strive to produce accurate, complete, and clear reports of imaging services. To assist us in improving patient care, this report was composed using standard report templates and voice recognition software. Therefore, it may contain abnormal punctuation, insertions and/or omissions. Occasional wrong-word or sound-alike substitutions may occur. Though we review the report and make efforts to correct it, we do recommend that the report be read carefully in proper context to recognize any text inaccuracies. Dictated by: José Miguel Jensen M.D. on 02/23/2025 at 13:02 Approved by: José Miguel Jensen M.D. on 02/23/2025 at 13:06
== END ==
PROVIDERS: PCP Family Medicine; Referring Provider Obstetrics & Gynecology; Visit Provider Obstetrics & Gynecology
DX: Z34.92 Encounter for supervision of normal pregnancy, unspecified, second trimester (principal); Z3A.20 20 weeks gestation of pregnancy
CPT/HCPCS: 76811

== ENCOUNTER → 2025-03-24 09:54 | Outpatient (CLI) | payer OTHER, SELFPAY ==
[2025-03-24 11:06] LABS: Hematocrit 34.4 % (36-46)
[2025-03-24 12:15] LABS: GTT (PREG) 1 Hour PP 50gm Dose 81 mg/dL (76-139)
== END ==
PROVIDERS: PCP Family Medicine; Referring Provider Obstetrics & Gynecology; Visit Provider Obstetrics & Gynecology
DX: Z34.82 Encounter for supervision of other normal pregnancy, second trimester (principal); Z3A.26 26 weeks gestation of pregnancy
CPT/HCPCS: 36415; 82950; 85014; 85018

== ENCOUNTER 2025-05-10 14:42 | Observation (INO) | payer OTHER, SELFPAY ==
[2025-05-10 15:17] LABS: Appearance Urine UA CLEAR; Bilirubin Urine UA NEGATIVE (NEGATIVE); Color Urine UA YELLOW; Glucose Urine UA NEGATIVE (Negative); Ketones Urine UA 3+ (NEGATIVE); Leukocyte Esterase Urine UA NEGATIVE (NEGATIVE); Nitrite Urine UA NEGATIVE (Negative); Occult Blood Urine UA 1+ (Negative); Protein Urine UA TRACE (Negative); Specific Gravity Urine UA >=1.030 (1.000-1.035); Urobilinogen Urine UA 1.0 E.U./dL (0.2)
--- NOTE | 2025-05-10 15:19 | DI.US.S_ITS ---
PROCEDURE: US OB LIMITED INDICATIONS: SPOTTING OUTSIDE/PRIOR DATING DATA: Working ELIUD of 07/11/2025. TECHNIQUE: Real-time scanning was performed of the fetus, with image documentation. COMPARISON: [facility], US, US OB >= 14 WEEKS FETUS, 04/26/2025, 10:00. FINDINGS: A single living intrauterine gestation is present. Presentation: Vertex. Placenta: Placental position is posterior, without previa. Amniotic fluid index: 12.8 cm, normal range is 5-24 cm. Single deepest vertical pocket is 4.4 cm. heart rate: 145 beats per minute. Maternal cervical canal: 3.5 cm long. Normal lower limit is 2.5 cm. Clinically estimated gestational age: 31 weeks 1 day IMPRESSION: Single live intrauterine with gestational age of 31 weeks 1 day. JAY is within normal limits. No evidence of abruption. Dictated by: Sherry Kramer M.D. on 05/10/2025 at 17:13 Approved by: Sherry Kramer M.D. on 05/10/2025 at 17:14
[2025-05-10 15:26] LABS: pH Urine UA 5.5 (4.5-8.0)
[2025-05-10 15:30] LABS: Culture Indicated Urine Cult Not Indicated
== END 2025-05-10 17:42 | disposition home or self-care (01) ==
PROVIDERS: Obstetrics & Gynecology; Admitting Provider Student in an Organized Health Care Education/Training Program; PCP Family Medicine; Referring Provider Student in an Organized Health Care Education/Training Program; Visit Provider Student in an Organized Health Care Education/Training Program
DX: O26.853 Spotting complicating pregnancy, third trimester (principal); Z3A.31 31 weeks gestation of pregnancy
CPT/HCPCS: 59025; 59050; 76815; 76817; 81001; G0378; G0379

== ENCOUNTER 2025-05-19 14:15 | Observation (INO) | payer OTHER, SELFPAY ==
[2025-05-19 15:00] LABS: Appearance Urine UA CLEAR; Bilirubin Urine UA NEGATIVE (NEGATIVE); Color Urine UA YELLOW; Glucose Urine UA NEGATIVE (Negative); Ketones Urine UA NEGATIVE (NEGATIVE); Leukocyte Esterase Urine UA 3+ (NEGATIVE); Nitrite Urine UA NEGATIVE (Negative); Occult Blood Urine UA NEGATIVE (Negative); Protein Urine UA NEGATIVE (Negative); Specific Gravity Urine UA <=1.005 (1.000-1.035); Urobilinogen Urine UA 0.2 E.U./dL (0.2); pH Urine UA 5.5 (4.5-8.0)
[2025-05-19 15:16] LABS: Culture Indicated Urine Specimen Cultured
[2025-05-19] MEDS: NITROFURANTOIN ER 100 MG CAPSULE PO ×2 (15:37→16:48)
--- NOTE | 2025-05-19 16:01 | P.TNLD_ITS ---
Visit Information Visit Information Date of evaluation: 05/19/25 Primary OB Provider: Julita Boggs On-call OB Provider: Pilar Cristina Reason for Evaluation: Yes pre-term labor and Yes rule out labor Comments/Additional reasons for admission: This is a 29 yo at 32w3d here for concern of contractions. She was seen 1 week ago for similar and received nifedipine protocol (3 doses total) and returned home with no futher contractions. At that time she had no signs of UTI or vaginal infection. She returns today with 1 hr of back pain occuring every 5- 7 minutes. Good movement. [facility] Medical History (Updated 05/07/25 @ 07:24 by Julita Boggs MD) Restless leg syndrome (~2020) Vaginal delivery (~08/05/23) Headache (~2008) Shoulder pain Scoliosis (~2010) Chronic back pain Ankle pain Acne (~2009) Painful menstrual periods (~2015) Heavy menstrual period (~2008) Surgical History (Updated 11/23/24 @ 08:40 by Jenny Zamora RN) H/O dilation and curettage (~08/2022) Anesthesia History of third molar tooth extraction (~06/2015) Family History (Updated 11/23/24 @ 08:43 by Jenny Zamora RN) Grandfather Age: 87 Heart disease Essential hypertension High cholesterol Transient cerebral ischemia, unspecified type TGA (transient global amnesia) S/P CABG x 5 TIA (transient ischemic attack) Anxiety Grandmother Age: 86 Diabetes mellitus Heart disease Essential hypertension High cholesterol ST elevation myocardial infarction (STEMI), unspecified artery Mother Essential hypertension High cholesterol Meniere's disease, left Gastric cancer Grandfather Diabetes mellitus Heart disease Essential hypertension High cholesterol Hx of CABG Transient cerebral ischemia, unspecified type BPH (benign prostatic hyperplasia) Colitis Gout Prostate cancer Grandmother Age: 87 Essential hypertension Migraine with aura High cholesterol Sister History of PCOS Immune deficiency disorder Social History marital status: number of children: 1 household members: spouse, family (father) and children lives independently: Yes housing: apartment pets and animals: Yes (kitten, is managing litter box maintenance) education level: college (some college) 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, 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) current occupational exposures/hazards: No special summer needs: No travel history: over 6 months ago seatbelt use: always water heater temp set < 120 deg: Yes working smoke detector in home: Yes fire extinguisher in home: Yes carbon monox detector in home: Yes firearms in home: Yes firearms unloaded and locked: Yes do you feel safe at home: Yes second hand exposure: No alcohol intake: former (occasionally when not ) substance use type: does not use during the past year weight has: other (back to nearly normal non- weight) well-balanced diet: daily or most days daily servings fruits/ve-4 caffeine: Yes Type(s) of exercise: none Objective Labs Labs: Laboratory Results - last 24 hr 05/19/25 14:35 Urine Color Yellow Urine Appearance Clear Urine pH 5.5 Ur Specific [place] <=1.005 Urine Protein Negative Urine Glucose (UA) Negative Urine Ketones Negative Urine Occult Blood Negative Urine Nitrate Negative Urine Bilirubin Negative Urine Urobilinogen 0.2 Ur Leukocyte Esterase 3+ H Urine RBC 0-1/hpf D Urine WBC 1-5/hpf Ur Squamous Epith Cells 10-30 /hpf H Urine Bacteria Moderate (10-30) H Ur Culture Indicated? Specimen cultured Vol Urine Centrifuged 10ml (spun) Evaluation Evaluation Baseline heart rate: 145 Variability: Moderate (6-25) monitor accelerations: Present Monitor Decelerations: Absent Contraction Frequency (minutes): 5 Uterine Contraction Intensity: Mild Category of Tracing: Reactive Status: Category l Diagnosis, Plan/Disposition Plan/Disposition Plan: 29 yo at 32w3d here with contractions. UA showing 3+ leuk esterase and moderate bacteria. Wet prep negative. Patient received 100 mg nitrofurantoin at L&D (allergy to cephalosporins). She also received nifedipine to slow contractions (10 mg x 2). Contractions slowed, safe for discharge. Sent in 1 week of nitrofurantoin to treat UTI, culture pending. Recommend fu 1 week with primary OB. OB Disposition: home
== END 2025-05-19 17:12 | disposition home or self-care (01) ==
PROVIDERS: Admitting Provider Student in an Organized Health Care Education/Training Program; PCP Family Medicine; Referring Provider Student in an Organized Health Care Education/Training Program; Visit Provider Student in an Organized Health Care Education/Training Program
DX: O47.03 False labor before 37 completed weeks of gestation, third trimester (principal); Z3A.32 32 weeks gestation of pregnancy
CPT/HCPCS: 59025; 59050; 81001; 87086; 87210; G0378; G0379

== ENCOUNTER → 2025-06-14 12:02 | Outpatient (CLI) | payer OTHER, SELFPAY ==
[2025-06-15 10:47] LABS: Strep Grp B PCR NEG for Grp B Strep
== END ==
LOC: LAB 12:07
PROVIDERS: PCP Family Medicine; Visit Provider Obstetrics & Gynecology
DX: Z34.83 Encounter for supervision of other normal pregnancy, third trimester (principal); Z3A.36 36 weeks gestation of pregnancy
CPT/HCPCS: 87653

== ENCOUNTER → 2025-08-24 10:39 | Outpatient (CLI) | payer OTHER, SELFPAY ==
--- NOTE | 2025-08-24 10:40 | DI.US.S_ITS ---
PROCEDURE: US PELVIC COMPLETE INDICATIONS: Possible retained products of conception per notes TECHNIQUE: Real-time scanning was performed of the pelvic organs, with image documentation. Additional endovaginal scanning was necessary due to incomplete visualization of the adnexal and endometrial structures by transabdominal scanning. Thirty-six images. COMPARISON: [facility] 05/18/2025 ultrasound FINDINGS: Uterus: Uterus is anteverted and measures approximately 7.5 x 6.0 x 3.5 cm. The myometrium is homogeneous. The endometrium measures 5 mm combined thickness. No ultrasound evidence of retained products of conception or abnormal thickening or increased vascularity in the endometrial echo complex Ovaries: The right ovary measures 2.6 x 1.5 x 1.3 cm, with a calculated ovarian volume of 2.5 cc. The left ovary measures 1.6 x 0.8 x 0.7 cm, with a calculated ovarian volume of 0.4 cc. The ovaries have a normal sonographic appearance. Less than 12 follicles can be seen in each ovary. No adnexal masses are seen. Other: No pathologic free abdominal or pelvic fluid. IMPRESSION: No ultrasound evidence retained products of conception. We strive to produce accurate, complete, and clear reports of imaging services. To assist us in improving patient care, this report was composed using standard report templates and voice recognition software. Therefore, it may contain abnormal punctuation, insertions and/or omissions. Occasional wrong-word or sound-alike substitutions may occur. Though we review the report and make efforts to correct it, we do recommend that the report be read carefully in proper context to recognize any text inaccuracies. Dictated by: Mike Maza M.D. on 08/24/2025 at 12:18 Approved by: Mike Maza M.D. on 08/24/2025 at 12:27
== END ==
PROVIDERS: PCP Family Medicine; Referring Provider Obstetrics & Gynecology; Visit Provider Obstetrics & Gynecology
DX: O72.1 Other immediate postpartum hemorrhage (principal)
CPT/HCPCS: 76830; 76856